=== PATIENT | female | born 1965 | race African-American/Black ===

== ENCOUNTER 2024-01-27 10:58 | Emergency (ER) | payer MEDICARE, MEDICAID ==
[~2024-01-27] VITALS: Ht 170.2 cm; Wt 55.0 kg
[2024-01-27 10:54] VITALS: TEMP 98.6; O2SAT 100
[2024-01-27 10:56] VITALS: O2SAT 96
[2024-01-27] MEDS ORDERED: IBUPROFEN 600MG TABLET PO ONE (11:45)
[2024-01-27] MEDS ORDERED: IBUP-2029 MT (12:59)
[2024-01-27 13:56] VITALS: BP 119/54; PULSE 96; RESP 18
[2024-01-27] MEDS: IBUPROFEN 600MG TABLET PO NR (13:56)
== END 2024-01-27 13:59 | disposition home or self-care (01) ==
LOC: ER 10:58
DX: S93.601A Unspecified sprain of right foot, initial encounter (principal); I10 Essential (primary) hypertension; Z88.1 Allergy status to other antibiotic agents; X50.1XXA Overexertion from prolonged static or awkward postures, initial encounter; Y93.89 Activity, other specified; Y92.89 Other specified places as the place of occurrence of the external cause; Y99.8 Other external cause status
CPT/HCPCS: 73630; 99283